=== PATIENT | male | born 1975 | race Caucasian/White ===

== ENCOUNTER 2017-05-28 06:03 | Inpatient (IN) | payer BC ==
[2017-05-28 07:04] VITALS: BMI 37.1
[2017-05-28] MEDS ORDERED: DEXAMETHASONE SOD PHOSPHATE 4 MG/1 ML VIAL ONE (07:14)
[2017-05-28] MEDS ORDERED: PHENYLEPHRINE HCL 10 MG/1 ML SINGLE DOSE VIAL ONE (07:14)
[2017-05-28] MEDS ORDERED: ONDANSETRON 4 MG/2 ML VIAL ONE (07:14)
[2017-05-28] MEDS ORDERED: LIDOCAINE HCL/PF 2% SDV 5ML VIAL ONE (07:14)
[2017-05-28] MEDS ORDERED: ceFAZolin SODIUM 1 GM VIAL ONE (07:14)
[2017-05-28] MEDS ORDERED: ePHEDrine SULFATE 50 MG/1 ML AMPULE ONE ×2 (07:14→09:53)
[2017-05-28] MEDS ORDERED: SUCCINYLCHOLINE CHLORIDE 200 MG/10 ML VIAL ONE (07:14)
[2017-05-28] MEDS ORDERED: PROPOFOL 20 ML ONE (07:14)
[2017-05-28] MEDS ORDERED: SODIUM CHLORIDE 0.9% P/F 10 ML VIAL IJ ONE (07:18)
[2017-05-28] MEDS ORDERED: MIDAZOLAM HCL 2 MG/2 ML SINGLE DOSE VIAL ONE ×2 (07:19→08:10)
--- NOTE | 2017-05-28 07:22 | HP ---
History & Physical Update - History History: No Change - Physical Physical: No Change - Assessment Assessment: No Change - Plan Plan: No Change
[2017-05-28] MEDS ORDERED: ROCURONIUM BROMIDE 50 MG/5 ML VIAL ONE ×2 (07:23)
[2017-05-28] MEDS ORDERED: THROMBIN (BOVINE) 5,000 UNIT VIAL TP ONE (08:04)
[2017-05-28] MEDS ORDERED: fentaNYL CITRATE 250 MCG/5 ML VIAL ONE ×7 (08:32→11:49)
[2017-05-28] MEDS ORDERED: BACITRACIN 15 GM TUBE TOPICAL OINTMENT ONE (12:00)
[2017-05-28] MEDS: HYDROmorphone HCL CARPU-JECT 1 MG/1 ML DISP.SYRIN IVPUSH PRN ×3 (12:30→13:05)
[2017-05-28] MEDS ORDERED: HYDROmorphone HCL CARPU-JECT 1 MG/1 ML DISP.SYRIN ONE ×2 (12:44→12:57)
--- NOTE | 2017-05-28 13:16 | OP ---
Operative Note - Note: Operative Date: 05/28/17 Pre-Operative Diagnosis: degenerative disc disease Operation: L4-L4 laminectomy with instrumented fusion and interbody cage placement Implants: Nuvasive 5.5x35mm screws x2. 5.5x30mm screws x2. tulip scew heads x 4. lock screws x4. 30mm patrick x2. interbody cage 10 Post-Operative Diagnosis: Same as Pre-op Surgeon: Toro Gilliam Animal Health Technician: Jennifer Argueta Anesthesiologist/TRANSPORT TECH: David Perera Anesthesia: General Specimens Removed: partial L4-L5 disc Estimated Blood Loss (mls): 50 Fluid Volume Replaced (mls): 1,400 Operative Report Dictated: Yes
--- NOTE | 2017-05-28 13:20 | SURG ---
Surgery Boomboat Operator Note Boomboat Operator: Jennifer Argueta PA-C Date of Service: 05/28/17 Diagnosis: lumbar degenerative disc disease Procedure: L4-L5 laminectomy with instrumented fusion and interbody cage placement I was present for the entirety of the operative procedure. For further detail, please refer to operative report. Visit type - Case Type Case Type: Scheduled Admission - Emergency Emergency Visit: No - New patient This patient is new to me today: Yes Date on this admission: 05/28/17
[2017-05-28] MEDS: SODIUM CHLORIDE 0.45% 1,000 ML IV SCH (15:00)
[2017-05-28] MEDS: CEFAZOLIN 1 GM/D5W 1 GRAM/50 ML BAG IVPB SCH (16:22)
[2017-05-28] MEDS: ONDANSETRON 4 MG/2 ML VIAL IVPUSH PRN (16:51)
--- NOTE | 2017-05-28 18:57 | PN ---
Progress Note (short form) - Note Progress Note: sitting in chair eating dinner, c/o nausea, back pain tolerable AVSS dressing clean NVID s/p lumbar fusion -oob/PT -possible d/c tomorrow versus friday depending on clinical progress.
[2017-05-28] MEDS: HYDROmorphone HCL 2 MG TABLET PO PRN ×2 (19:19→21:50)
[2017-05-28] MEDS ORDERED: diazePAM 5 MG TABLET PO PRN (20:38)
--- NOTE | 2017-05-28 21:26 | OP ---
DATE OF OPERATION: 05/28/2017 PREOPERATIVE DIAGNOSES: 1. Lumbar degenerative spondylolisthesis. 2. Chronic diskogenic low back pain. 3. Degenerative disk disease, lumbar spine. 4. Chronic lumbar radiculopathy. POSTOPERATIVE DIAGNOSES: 1. Lumbar degenerative spondylolisthesis. 2. Chronic diskogenic low back pain. 3. Degenerative disk disease, lumbar spine. 4. Chronic lumbar radiculopathy. PROCEDURE PERFORMED: 1. Posterior lumbar instrumented spinal fusion at L4-5 (WhenSoon MAS PLIF). Screws: Two 30 x 5.5 mm at L4 and two 35 x 5.5 mm at L5, two 30-mm rods, 4 set caps, 1 MAS PLIF cage (4-degree lordosis, 23 mm x 10 mm in height). 2. Transforaminal lumbar interbody fusion from the left side at L4-5. 3. Insertion of PEEK (polyetheretherketone) cage at L4-5. 4. Local autograft with augmentation with FormaGraft. ANESTHESIA: General. PNEUMATIC TOOL OPERATOR: MAJOR Reed SURGEON: Toro Gilliam MD INDICATIONS: The patient is a 41-year-old male with severe, chronic history of severe diskogenic back pain with radiating pain into the gluteal region. This has been refractory to management with physical therapy, multiple oral medications, and multiple epidural steroid injections given by Pain Management. The patient remains with severe axial back pain which is activity related and worse with even picking up his kids. He has been symptomatic greater than 2 years. Preoperative radiographs showed instability at L4-5 which worsens with dynamic testing. Risks, benefits , and alternatives of the surgery were discussed in detail with the patient, and informed consent was obtained. DESCRIPTION OF PROCEDURE: The patient was brought into the operating room via a stretcher, and general endotracheal anesthesia was administered by the anesthesiologist. The patient had both lower extremities placed with needles for intraoperative monitoring using the [employer]Soon NeuroVision system. The patient was then flipped into the prone position onto a padded Meliton frame, and all bony prominences were padded. The back was then prepped and draped in the usual sterile fashion. A fluoroscopic C-arm was draped in to allow for intraoperative AP and lateral fluoroscopic radiographs. A timeout was performed. Prophylactic IV antibiotics were administered. A midline incision was then made at the appropriate level. Dissection was carried down to the level of the fascia, exposing the L4- 5 level. A deep retractor was then placed. The spine was then instrumented as follows: Under fluoroscopic guidance, a sdv pilot/navigator/dds operator hole was made at the pars interarticularis of L4, headed superior and lateral. A 4.5-mm drill was then passed, followed by a 5.5-mm tap. After checking the march of the sdv pilot/navigator/dds operator hole, the drill and the tap were inserted under direct monitoring using the NeuroVision system. The screws were then inserted at L4 and L5 in the above fashion. All screws stimulated greater than 20 milliamperes. AP and lateral fluoroscopic radiographs of all the screws showed excellent trajectories without medial or inferior trajectory. A subtotal laminectomy of the L5 lamina was then performed with partial medial facetectomy and foraminotomy on the left side. The ligamentum flavum was excised. The traversing root was identified, as well as the exiting root. An annulotomy was then made. There was noted to be a chronic central and paracentral disk herniation at this level. A subtotal diskectomy was then performed. The paddle kush were used to take out the disk, and a 10-mm cage was felt to be appropriate for this patient. A cage was then packed with morselized local autograft, FormaGraft, and was placed into the L4-5 disk space under fluoroscopic guidance after packing the disc space with autograft and formagraft. Excellent position of the cage was noted with latter day of the disk height. The contralateral facet was then burred out and tacked with morselized local autograft and FormaGraft. The screw heads were then engaged. The wound was copiously irrigated, and two 30-mm rods were placed along with set caps which were final tightened using the torqueing device. Excellent hemostasis was achieved. The deep fascia was then closed with No. 1 Vicryl suture. The deep dermal tissues were approximated with 2-0 Vicryl suture. The skin was closed with katlin. A sterile dressing was applied. robert Reed-Alia, was necessary throughout the case with proper assistance in retraction of the neural elements and instrumentation of the spine. This could not have been done without a skilled mechanic assistant. Luann ABRAMS/[id number] MTDD
[2017-05-28] MEDS: DOCUSATE SODIUM 100 MG CAPSULE (FP) PO SCH (21:51)
[2017-05-28] MEDS ORDERED: DOCUSATE SODIUM 100 MG CAPSULE (FP) PO SCH (22:00)
[2017-05-29] MEDS: CEFAZOLIN 1 GM/D5W 1 GRAM/50 ML BAG IVPB SCH (00:25)
[2017-05-29] MEDS: ONDANSETRON 4 MG/2 ML VIAL IVPUSH PRN (00:25)
[2017-05-29] MEDS: DOCUSATE SODIUM 100 MG CAPSULE (FP) PO SCH ×2 (09:16→21:09)
--- NOTE | 2017-05-29 10:30 | PN ---
Progress Note (short form) - Note Progress Note: Feeling well. sitting upright in chair. pain improved compared to yesterday VSS AF Dressing CDI NVID -D/C this afternoon or tomorrow depending on how he is feeling -Pain control -OOB/PT
--- NOTE | 2017-05-29 12:43 | PN ---
Progress Note (short form) - Note Progress Note: Post op day#1.S/P L4-L5 Laminectomy with decompression unfusion under Ga uneventful.Patient stable and has little pain for which he is on medication,No any anesthesia related problem.Patient DC from the anesthesia care.
[2017-05-29] MEDS ORDERED: ONDANSETRON 4 MG/2 ML VIAL IVPUSH ONE (13:00)
[2017-05-29] MEDS: SODIUM CHLORIDE 0.45% 1,000 ML IV SCH (17:45)
[2017-05-29] MEDS ORDERED: BENZOCAINE/MENTH/CETYLPYRD CL 1 EACH LOZENGE MM PRN ×2 (18:12→18:14)
[2017-05-29] MEDS: ONDANSETRON 4 MG TABLET PO PRN (19:44)
[2017-05-30 05:31] VITALS: BP 134/80; PULSE 100; TEMP 98.8
[2017-05-30] MEDS: ONDANSETRON 4 MG TABLET PO PRN (08:23)
[2017-05-30] MEDS: DOCUSATE SODIUM 100 MG CAPSULE (FP) PO SCH (09:02)
--- NOTE | 2017-05-30 09:05 | PN ---
Progress Note (short form) - Note Progress Note: doing better, no leg pain AVSS wound c/d/i motor strength full POD#2 -d/c home -f/u one week -wound care discussed.
== END 2017-05-30 13:15 | disposition home or self-care (01) | DRG 460 ==
LOC: FM/S 06:03
PROVIDERS: ADMIT Orthopaedic Surgery Orthopaedic Surgery of the Spine; ATTEND Orthopaedic Surgery Orthopaedic Surgery of the Spine
PROC: 0SB20ZZ Excision of Lumbar Vertebral Disc, Open Approach (ICD-10-PCS; 2017-05-28)
PROC: 0SG00AJ Fusion of Lumbar Vertebral Joint with Interbody Fusion Device, Posterior Approach, Anterior Column, Open Approach (ICD-10-PCS; principal; 2017-05-28 08:57)
DX: M43.16 Spondylolisthesis, lumbar region (principal); M54.16 Radiculopathy, lumbar region
CPT/HCPCS: 72100-TC; 94760; 97116-GP; 97161-GP